=== PATIENT | male | born 1970 | race Caucasian/White ===

== ENCOUNTER 2017-04-11 08:28 | Day surgery (SDC) | payer MEDICAID ==
--- NOTE | 2017-04-11 10:00 | Operative Note ---
Surgeon/Diagnoses Surgeon/Licensed [employer] Director And Embalmer(s) Date of procedure: 04/11/17 Surgeon: MD Mark Angeles Diagnoses Pre-op diagnosis: Periumbilical pain Change in bowel habits Post-op diagnosis Same as preoperative diagnoses, with the addition of following: Colon polyp Mild hemorrhoidal cushions Procedure Procedure Procedure: Colonoscopy with biopsy Indications: VALDO TREVIZO is a 46 year-old Male with a history of intermittent periumbilical pain and a recent change in his bowel habits. Findings: Bowel preparation fairly poor Mild hemorrhoidal cushions Small polyp at 20 cm Procedure Description: After informed consent was obtained, the patient was taken to the endoscopy suite. Monitored anesthesia care ensued after he was transferred to the LEFT lateral decubitus position. Digital rectal exam revealed some mild hemorrhoidal cushions. No thrombosis or bleeding was noted. The colonoscope was placed in position. The entire colon was evaluated. Bowel preparation was fairly poor with large volume irrigation and suctioning used to somewhat improved visualization. A small polyp at 20 cm was excised with cold biopsy forceps. Mild hemorrhoidal cushions with no thrombosis or bleeding were confirmed. The colonoscope was carefully removed and the patient was transferred to recovery. EBL (ml): 1 Anesthesia: Monitored anesthesia care Complications: No immediate Specimens: Polyp at 20 cm Disposition Disposition: Stable to recovery from where he will be discharged home. He will follow-up in one week. Repeat colonoscopy is pending pathology but will likely be between 2-3 years secondary to poor bowel preparation. at 1000
[2017-04-11 12:37] VITALS: BP 112/63
== END 2017-04-11 10:29 | disposition home or self-care (01) ==
LOC: SDC 08:28
PROVIDERS: Surgery
PROC: 0DBE8ZX Excision of Large Intestine, Via Natural or Artificial Opening Endoscopic, Diagnostic (ICD-10-PCS; principal; 2017-04-11 09:30)
DX: K63.5 Polyp of colon (principal); R19.4 Change in bowel habit; R10.815 Periumbilic abdominal tenderness; K64.9 Unspecified hemorrhoids

== ENCOUNTER → 2017-05-07 | Outpatient (CLI) | payer MEDICAID ==
[2017-05-07 19:16] LABS: AMPHETAMINES/METAMPHETAMINES NEGATIVE ng/mL (<1000)
== END ==
LOC: LAB 18:32
PROVIDERS: Emergency Medicine
DX: Z79.899 Other long term (current) drug therapy (principal)

== ENCOUNTER → 2017-07-03 | Outpatient (CLI) | payer MEDICAID ==
[2017-07-03 18:58] LABS: AMPHETAMINES/METAMPHETAMINES NEGATIVE ng/mL (<1000)
== END ==
LOC: LAB 18:16
PROVIDERS: Emergency Medicine
DX: Z79.899 Other long term (current) drug therapy (principal)